=== PATIENT | male | born 1980 | race Caucasian/White ===

== ENCOUNTER 2019-09-18 15:04 | Observation (INO) ==
[2019-09-18] MEDS ORDERED: 0.9 % Sodium Chloride 1,000 ML IVC ONE ×2 (16:15→22:35)
[2019-09-18 16:27] LABS: Bilirubin,Urine Small (Negative); Blood,Urine Negative (Negative); Clarity,Urine Clear (Clear); Color,Urine Dark Yellow (Yellow); Glucose,Urine (UA) Normal (Normal); Ketones,Urine 40 mg/dL (Negative); Leukocyte Esterase,Urine Negative (Negative); Nitrite,Urine Negative (Negative); Protein,Urine Trace mg/dL (Neg-Trace); Specific Gravity,Urine 1.028 (1.010-1.025); Urobilinogen,Urine Normal (Normal)
[2019-09-18 16:32] LABS: VBG HCO3 24 mEq/L (21-27); VBG PCO2 36 mmHg (41-51); VBG PH 7.44 pH Units (7.32-7.42); VBG PO2 34 mmHg (25-50)
[2019-09-18 16:36] LABS: Basophils # 0.1 K/mcL (0.0-0.2); Basophils % 0.3 %; Hematocrit 42.3 % (37.5-50.1); Hemoglobin 14.9 g/dL (12.9-16.9); Immature Granulocytes % 0.3 % (0-4); Lymphocytes % 6.4 %; Mean Corpuscular HGB Conc 35.2 g/dL (31.6-35.5); Mean Corpuscular Hemoglobin 33.3 pg (28.0-33.3); Mean Corpuscular Volume 94.4 fL (83.0-100.0); Mean Platelet Volume 9.4 fL (9.4-12.4); Monocytes % 6.7 %; Neutrophils # 13.3 K/mcL (1.6-8.9); Platelet Count 219 K/mcL (140-400); Red Blood Count 4.48 M/mcL (4.19-5.50); Red Cell Distribution Width 12.2 % (11.5-14.5); Segmented Neutrophils % 86.3 %; White Blood Count 15.4 K/mcL (4.3-11.1)
[2019-09-18 16:38] LABS: Amphetamine Screen,Urine Positive ng/mL (Cutoff=1000); Barbiturate Screen,Urine Negative ng/mL (Cutoff=200); Benzodiazepines Screen,Urine Negative ng/mL (Cutoff=200); Cannabinoid Screen,Urine Positive ng/mL (Cutoff = 50); Cocaine Screen,Urine Negative ng/mL (Cutoff= 300); Opiate Screen,Urine Negative ng/mL (Cutoff=300); Phencyclidine Screen,Urine Negative ng/mL (Cutoff=25)
[2019-09-18 16:51] LABS: Acetaminophen < 10 mcg/mL (10-20); Alanine Aminotransferase 58 Units/L (7-52); Albumin 4.5 g/dL (3.5-5.7); Albumin/Globulin Ratio 1.6 (1.1-2.2); Alkaline Phosphatase 85 Units/L (34-104); Aspartate Amino Transferase 41 Units/L (13-39); BUN/Creatinine Ratio 26 (6-26); Bilirubin,Direct 0.4 mg/dL (0.0-0.2); Bilirubin,Indirect 1.4 mg/dL (0.0-1.0); Bilirubin,Total 1.8 mg/dL (0.3-1.0); Blood Urea Nitrogen 24 mg/dL (6-20); Calcium 9.7 mg/dL (8.6-10.3); Carbon Dioxide 24 mEq/L (23-29); Chloride 104 mEq/L (98-107); Ethanol < 10 mg/dL (Less than 10); Globulin 2.8 g/dL (2.4-3.5); Glucose 75 mg/dL (70-105); Magnesium 1.6 mg/dL (1.6-2.6); Osmolality,Calculated 289 (280-300); Potassium 4.1 mEq/L (3.5-5.1); Salicylate < 2.5 mg/dL (15.0-30.0); Sodium 138 mEq/L (136-145); Total Protein 7.3 g/dL (6.4-8.9); Troponin I < 0.03 ng/mL (< 0.04); eGFR For African Americans > 60 (> 60); eGFR For Non-African Americans > 60 (> 60)
[2019-09-18 18:24] LABS: Hepatitis B Surface Antigen Nonreactive (Nonreactive)
[2019-09-18 18:53] LABS: Hepatitis B Core IgM Nonreactive (Nonreactive)
[2019-09-18 18:54] LABS: Hepatitis A Antibody IgM Nonreactive (Nonreactive)
[2019-09-18] MEDS ORDERED: FOMEPIZOLE IVPB ONE (20:00)
[2019-09-18] MEDS ORDERED: SODIUM CHLORIDE 0.9% IVPB ONE (20:00)
[2019-09-18 20:12] LABS: Hepatitis C Virus Antibody Reactive (Nonreactive)
[2019-09-18] MEDS ORDERED: Naloxone 0.4 MG/ML INJ IVP PRN (22:31)
[2019-09-18] MEDS ORDERED: hydrOXYzine pamoate 25 MG CAPSULE PO PRN (22:54)
[2019-09-18 23:35] LABS: BUN/Creatinine Ratio 24 (6-26); Blood Urea Nitrogen 25 mg/dL (6-20); Carbon Dioxide 25 mEq/L (23-29); Chloride 105 mEq/L (98-107); Glucose 91 mg/dL (70-105); Osmolality,Calculated 288 (280-300); Potassium 4.1 mEq/L (3.5-5.1); Sodium 137 mEq/L (136-145); eGFR For African Americans > 60 (> 60); eGFR For Non-African Americans > 60 (> 60)
[2019-09-19 01:55] LABS: Alanine Aminotransferase 51 Units/L (7-52); Albumin 3.9 g/dL (3.5-5.7); Albumin/Globulin Ratio 1.6 (1.1-2.2); Alkaline Phosphatase 70 Units/L (34-104); Aspartate Amino Transferase 36 Units/L (13-39); BUN/Creatinine Ratio 24 (6-26); Blood Urea Nitrogen 24 mg/dL (6-20); Calcium 8.5 mg/dL (8.6-10.3); Carbon Dioxide 24 mEq/L (23-29); Chloride 108 mEq/L (98-107); Globulin 2.4 g/dL (2.4-3.5); Glucose 83 mg/dL (70-105); Osmolality,Calculated 289 (280-300); Potassium 4.3 mEq/L (3.5-5.1); Sodium 138 mEq/L (136-145); Total Protein 6.3 g/dL (6.4-8.9); eGFR For African Americans > 60 (> 60); eGFR For Non-African Americans > 60 (> 60)
[2019-09-19] MEDS ORDERED: FOMEPIZOLE IVPB ONE ×2 (04:45→09:00)
[2019-09-19] MEDS ORDERED: SODIUM CHLORIDE 0.9% IVPB ONE ×2 (04:45→09:00)
[2019-09-19] MEDS: *HR* Heparin 5,000 UNIT/ML VIAL SQ SCH ×2 (05:17→17:57)
[2019-09-19 05:42] LABS: Basophils # 0.1 K/mcL (0.0-0.2); Basophils % 0.7 %; Eosinophils # 0.2 K/mcL (0.0-0.6); Eosinophils % 1.9 %; Hematocrit 38.6 % (37.5-50.1); Hemoglobin 13.5 g/dL (12.9-16.9); Immature Granulocytes % 0.3 % (0-4); Lymphocytes # 3.6 K/mcL (0.6-4.6); Lymphocytes % 36.5 %; Mean Corpuscular Hemoglobin 33.2 pg (28.0-33.3); Mean Corpuscular Volume 94.8 fL (83.0-100.0); Monocytes # 1.1 K/mcL (0.0-1.3); Monocytes % 11.3 %; Neutrophils # 4.9 K/mcL (1.6-8.9); Platelet Count 197 K/mcL (140-400); Red Blood Count 4.07 M/mcL (4.19-5.50); Red Cell Distribution Width 12.3 % (11.5-14.5); Segmented Neutrophils % 49.3 %; White Blood Count 9.9 K/mcL (4.3-11.1)
[2019-09-19] MEDS ORDERED: FOMEPIZOLE 1500 MG/1.5 ML IVPB ONE (09:00)
[2019-09-19] MEDS: Folic Acid 1 MG TABLET PO SCH (13:23)
[2019-09-19] MEDS: Thiamine (B-1) 100 MG TABLET PO SCH (13:23)
[2019-09-19 18:31] LABS: BUN/Creatinine Ratio 17 (6-26); Blood Urea Nitrogen 16 mg/dL (6-20); Calcium 9.3 mg/dL (8.6-10.3); Carbon Dioxide 31 mEq/L (23-29); Chloride 105 mEq/L (98-107); Creatine Kinase 178 Units/L (30-223); Glucose 81 mg/dL (70-105); Osmolality,Calculated 296 (280-300); Potassium 4.1 mEq/L (3.5-5.1); Sodium 143 mEq/L (136-145); eGFR For African Americans > 60 (> 60); eGFR For Non-African Americans > 60 (> 60)
[2019-09-20] MEDS: *HR* Heparin 5,000 UNIT/ML VIAL SQ SCH (06:01)
[2019-09-20] MEDS: Thiamine (B-1) 100 MG TABLET PO SCH (06:02)
[2019-09-20] MEDS: Folic Acid 1 MG TABLET PO SCH (06:02)
[2019-09-20 06:32] VITALS: BP 109/72
== END 2019-09-20 11:43 | disposition home or self-care (01) ==
LOC: EMEROOARM 15:04 → 3BNU 15:04
PROVIDERS: ADMIT Internal Medicine; ATTEND Internal Medicine

== ENCOUNTER 2020-04-23 10:14 | Observation (INO) ==
[2020-04-23] MEDS ORDERED: Ondansetron 4 MG/2 ML VIAL IVP PRN (11:07)
[2020-04-23] MEDS ORDERED: Nicotine 2 MG GUM BC PRN (11:19)
[2020-04-23] MEDS: Ringers Solution, Lactated 1,000 ML IVC SCH ×2 (12:50→20:26)
[2020-04-23] MEDS: Acetaminophen 325 MG TABLET PO PRN ×2 (12:51→22:17)
[2020-04-23] MEDS: Nicotine 21 MG PATCH.TD24 TD SCH (12:51)
[2020-04-23] MEDS: *HR* Enoxaparin 40 MG/0.4 ML SYRINGE SQ SCH (12:51)
[2020-04-23] MEDS: *HR* OxyCODONE Immed Rel 5 MG TABLET PO PRN (17:42)
[2020-04-23] MEDS: Benzocaine 20% 12 APPL GEL..GRAM. TP PRN (22:18)
[2020-04-23 22:45] LABS: Alanine Aminotransferase 39 Units/L (7-52); Albumin 3.7 g/dL (3.5-5.7); Albumin/Globulin Ratio 1.5 (1.1-2.2); Alkaline Phosphatase 66 Units/L (34-104); Aspartate Amino Transferase 22 Units/L (13-39); BUN/Creatinine Ratio 11 (6-26); Bilirubin,Total 0.2 mg/dL (0.3-1.0); Blood Urea Nitrogen 10 mg/dL (6-20); Calcium 8.5 mg/dL (8.6-10.3); Carbon Dioxide 26 mEq/L (23-29); Chloride 108 mEq/L (98-107); Globulin 2.5 g/dL (2.4-3.5); Glucose 116 mg/dL (70-105); Osmolality,Calculated 286 (280-300); Potassium 3.9 mEq/L (3.5-5.1); Sodium 138 mEq/L (136-145); Total Protein 6.2 g/dL (6.4-8.9); eGFR For African Americans > 60 (> 60); eGFR For Non-African Americans > 60 (> 60)
[2020-04-24] MEDS: *HR* OxyCODONE Immed Rel 5 MG TABLET PO PRN ×2 (01:24→09:30)
[2020-04-24 01:53] LABS: Hematocrit 37.5 % (37.5-50.1); Mean Corpuscular Hemoglobin 31.2 pg (28.0-33.3); Mean Corpuscular Volume 97.4 fL (83.0-100.0); Mean Platelet Volume 9.7 fL (9.4-12.4); Platelet Count 236 K/mcL (140-400); Red Blood Count 3.85 M/mcL (4.19-5.50); Red Cell Distribution Width 12.8 % (11.5-14.5); White Blood Count 7.7 K/mcL (4.3-11.1)
[2020-04-24 02:08] LABS: BUN/Creatinine Ratio 11 (6-26); Blood Urea Nitrogen 9 mg/dL (6-20); Calcium 8.6 mg/dL (8.6-10.3); Carbon Dioxide 27 mEq/L (23-29); Chloride 109 mEq/L (98-107); Glucose 87 mg/dL (70-105); Osmolality,Calculated 286 (280-300); Phosphorous 3.3 mg/dL (2.7-4.5); Potassium 3.9 mEq/L (3.5-5.1); Sodium 139 mEq/L (136-145); eGFR For African Americans > 60 (> 60); eGFR For Non-African Americans > 60 (> 60)
[2020-04-24] MEDS: Acetaminophen 325 MG TABLET PO PRN ×2 (05:37→13:36)
[2020-04-24] MEDS: Nicotine 21 MG PATCH.TD24 TD SCH (09:30)
[2020-04-24] MEDS: *HR* Enoxaparin 40 MG/0.4 ML SYRINGE SQ SCH (09:30)
[2020-04-24] MEDS ORDERED: methocarbamoL 500 MG TABLET PO PRN (10:39)
[2020-04-24] MEDS: Benzocaine 20% 12 APPL GEL..GRAM. TP PRN (12:39)
[2020-04-24 15:09] VITALS: BP 127/82
== END 2020-04-24 15:50 ==
LOC: EMEROOARM 10:14 → 2ANU 10:14 → SUATTDRO 11:26 → 2ANU 12:27
PROVIDERS: ADMIT Internal Medicine; ATTEND Internal Medicine

== ENCOUNTER 2020-04-24 15:47 | Inpatient (IN) ==
[2020-04-24] MEDS ORDERED: Haloperidol Lactate 5 MG/ML VIAL IM PRN (16:19)
[2020-04-24] MEDS ORDERED: *HR* LORazepam 2 MG/ML VIAL IM PRN (16:19)
[2020-04-24] MEDS ORDERED: haloperidoL 5 MG TABLET PO PRN (16:19)
[2020-04-24] MEDS ORDERED: MOM Conc 10 ML UD.LIQ PO PRN (16:19)
[2020-04-24] MEDS ORDERED: Mag Hydrox/Al Hydrox/Simeth 30 ML UDC PO PRN (16:19)
[2020-04-24] MEDS ORDERED: traZODone 50 MG TABLET PO PRN (16:19)
[2020-04-24] MEDS ORDERED: *HR* LORazepam 1 MG TABLET PO PRN (16:19)
[2020-04-24] MEDS: Ibuprofen 400 MG TABLET PO PRN ×2 (16:49→22:55)
[2020-04-24] MEDS: *HR* OxyCODONE Immed Rel 5 MG TABLET PO PRN (20:08)
[2020-04-24] MEDS: methocarbamoL 500 MG TABLET PO PRN (20:08)
[2020-04-25] MEDS: *HR* OxyCODONE Immed Rel 5 MG TABLET PO PRN ×2 (03:41→20:09)
[2020-04-25] MEDS: hydrOXYzine pamoate 25 MG CAPSULE PO PRN ×2 (03:41→20:08)
[2020-04-25] MEDS: Ibuprofen 400 MG TABLET PO PRN ×2 (10:07→16:42)
[2020-04-25] MEDS ORDERED: Benzocaine 20% 12 APPL GEL..GRAM. TP PRN (19:49)
[2020-04-25] MEDS: methocarbamoL 500 MG TABLET PO PRN (20:09)
[2020-04-26] MEDS: Ibuprofen 400 MG TABLET PO PRN ×2 (03:52→09:57)
[2020-04-26 09:44] VITALS: BP 111/79
== END 2020-04-26 11:45 | disposition home or self-care (01) | DRG 751 ==
LOC: 1ANU 15:47
PROVIDERS: ADMIT Psychiatry & Neurology Psychiatry; ATTEND Psychiatry & Neurology Psychiatry

== ENCOUNTER 2020-06-12 17:24 | Observation (INO) ==
[2020-06-12] MEDS ORDERED: 0.9 % Sodium Chloride 1,000 ML IVC ONE (17:36)
[2020-06-12] MEDS ORDERED: *HR* LORazepam 2 MG/ML VIAL IM ONE (17:36)
[2020-06-12 18:07] LABS: Basophils % 0.4 %; Eosinophils % 0.2 %; Hematocrit 44.6 % (37.5-50.1); Hemoglobin 14.3 g/dL (12.9-16.9); Immature Granulocytes % 0.2 % (0-4); Lymphocytes # 2.7 K/mcL (0.6-4.6); Lymphocytes % 27.4 %; Mean Corpuscular HGB Conc 32.1 g/dL (31.6-35.5); Mean Corpuscular Hemoglobin 29.4 pg (28.0-33.3); Mean Corpuscular Volume 91.8 fL (83.0-100.0); Mean Platelet Volume 9.4 fL (9.4-12.4); Monocytes # 0.6 K/mcL (0.0-1.3); Monocytes % 6.4 %; Neutrophils # 6.5 K/mcL (1.6-8.9); Platelet Count 284 K/mcL (140-400); Red Blood Count 4.86 M/mcL (4.19-5.50); Red Cell Distribution Width 14.3 % (11.5-14.5); Segmented Neutrophils % 65.4 %; White Blood Count 9.9 K/mcL (4.3-11.1)
[2020-06-12 18:27] LABS: Acetaminophen < 10 mcg/mL (10-20); BUN/Creatinine Ratio 21 (6-26); Blood Urea Nitrogen 18 mg/dL (6-20); Calcium 9.7 mg/dL (8.6-10.3); Carbon Dioxide 21 mEq/L (23-29); Chloride 106 mEq/L (98-107); Ethanol < 10 mg/dL (Less than 10); Glucose 153 mg/dL (70-105); Osmolality,Calculated 291 (280-300); Potassium 3.3 mEq/L (3.5-5.1); Salicylate < 2.5 mg/dL (15.0-30.0); Sodium 138 mEq/L (136-145); eGFR For African Americans > 60 (> 60); eGFR For Non-African Americans > 60 (> 60)
[2020-06-12] MEDS ORDERED: Potassium Chloride Elixir 20 MEQ/15 ML UDC PO ONE (18:31)
[2020-06-12] MEDS ORDERED: Ondansetron 4 MG/2 ML VIAL IVP ONE (18:34)
[2020-06-12 18:40] LABS: Thyroid Stimulating Hormone 3.789 mcIU/mL (0.340-5.600)
[2020-06-12 18:47] LABS: Amphetamine Screen,Urine Positive ng/mL (Cutoff=1000); Barbiturate Screen,Urine Negative ng/mL (Cutoff=200); Benzodiazepines Screen,Urine Negative ng/mL (Cutoff=200); Cannabinoid Screen,Urine Positive ng/mL (Cutoff = 50); Cocaine Screen,Urine Negative ng/mL (Cutoff= 300); Opiate Screen,Urine Negative ng/mL (Cutoff=300); Phencyclidine Screen,Urine Negative ng/mL (Cutoff=25)
[2020-06-12 18:51] LABS: Bilirubin,Urine Negative (Negative); Blood,Urine Negative (Negative); Clarity,Urine Clear (Clear); Color,Urine Yellow (Yellow); Glucose,Urine (UA) 30 mg/dL (Normal); Hyaline Casts,Urine Moderate per lpf (None Seen); Ketones,Urine Negative (Negative); Leukocyte Esterase,Urine Negative (Negative); Mucus,Urine Few per lpf (None-Few); Nitrite,Urine Negative (Negative); PH,Urine 5.5 pH Units (5.0-8.0); Protein,Urine 100 mg/dL (Neg-Trace); RBC,Urine 0-3 per hpf (0-3); Specific Gravity,Urine > 1.030 (1.010-1.025); Squamous Epithelial Cell,Urine Few per hpf (None-Few); Urobilinogen,Urine Normal (Normal)
[2020-06-12 22:51] LABS: Estimated Average Glucose 117 mg/dl; Hemoglobin A1C 5.7 %
[2020-06-13] MEDS ORDERED: Acetaminophen 325 MG TABLET PO PRN (02:11)
[2020-06-13] MEDS ORDERED: Mag Hydrox/Al Hydrox/Simeth 30 ML UDC PO PRN (02:11)
[2020-06-13] MEDS ORDERED: *HR* LORazepam 1 MG TABLET PO PRN (02:11)
[2020-06-13] MEDS ORDERED: haloperidoL 5 MG TABLET PO PRN (02:11)
[2020-06-13] MEDS ORDERED: *HR* LORazepam 2 MG/ML VIAL IM PRN (02:11)
[2020-06-13] MEDS ORDERED: MOM Conc 10 ML UD.LIQ PO PRN (02:11)
[2020-06-13] MEDS ORDERED: Haloperidol Lactate 5 MG/ML VIAL IM PRN (02:11)
[2020-06-13] MEDS: traZODone 50 MG TABLET PO PRN ×2 (03:14→21:38)
[2020-06-13] MEDS: hydrOXYzine pamoate 25 MG CAPSULE PO PRN ×2 (03:14→21:38)
[2020-06-13] MEDS: Nicotine 14 MG PATCH.TD24 TD SCH (08:53)
[2020-06-13] MEDS ORDERED: methocarbamoL 500 MG TABLET PO PRN (12:03)
[2020-06-13] MEDS ORDERED: Gabapentin 300 MG CAPSULE PO ONE (12:05)
[2020-06-13] MEDS: Ibuprofen 400 MG TABLET PO SCH ×2 (12:44→21:38)
[2020-06-13] MEDS: Gabapentin 300 MG CAPSULE PO SCH ×2 (12:44→21:39)
[2020-06-14] MEDS: Nicotine 14 MG PATCH.TD24 TD SCH (09:04)
[2020-06-14] MEDS: Ibuprofen 400 MG TABLET PO SCH (09:04)
[2020-06-14] MEDS: Gabapentin 300 MG CAPSULE PO SCH (09:04)
[2020-06-14 09:43] VITALS: BP 111/72
== END 2020-06-14 14:40 | disposition home or self-care (01) | DRG 751 ==
LOC: 1ANU 17:24 → EMEROOARM 17:24 → 1ANU 06-13 02:34
PROVIDERS: ADMIT Psychiatry & Neurology Psychiatry; ATTEND Psychiatry & Neurology Psychiatry